=== PATIENT | female | born 1970 | race Caucasian/White ===

== ENCOUNTER 2023-11-03 01:52 | Day surgery (SDC) | payer BC, OTHER, SELFPAY ==
--- NOTE | 2023-10-27 14:42 | PC.NURSE ---
Report to the Outpatient Waiting Room, entrance under the green pavilion located off [facility], at time 6:00 on date 11/03/23. Planned Procedure Time: 7:45. Time changes happen often and if your time is changed the preop area will call you the afternoon before. - You and your visitor will be asked to self-screen and do not enter if you have any COVID symptoms. - A mask is optional within the hospital at this time. Patients may have clear liquids (water, carbonated beverages, clear teas, apple juice) until 3 hours prior to surgery (4:45) with a maximum of 20 ounces. - No food from midnight until time of surgery Take the following medications with a SIP of water the morning of surgery: ATENOLOL IF NEEDED DO NOT STOP ANY OF YOUR OTHER PRESCRIPTION MEDICATIONS PRIOR TO SURGERY ?EXCEPT THE FOLLOWING Medications to discontinue per physician: VITAMINS/SUPPLEMENTS Date to take last dose: 10/30/[address] DYSON REGARDING MELOXICAM Please no make-up, nail solomon islander, hairspray, perfume, deodorant, or body powder the day of surgery. No jewelry (including any body piercings) or valuables the day of surgery, leave them at home. Please take a shower or bath the night before, or the morning of, surgery with an antibacterial soap. Wear comfortable, loose fitting clothing. - Jewelry must be removed prior to entering the operating room. Rings and piercings that are not removed may be cut off. - The hospital will not accept responsibility for valuables. - Please leave all valuables, including medications, at home the day of surgery. If you are going home after surgery, a licensed local flatbed driver must drive you home. - NO public transportation without another adult if you receive anesthesia. - We recommend that an adult stay with you for 24 hours following discharge. - We also recommend that you do not drive, make important decision, drink alcoholic beverages, or take any drugs that were not prescribed by your health care provider for at least 24 hours after your discharge time. Follow any additional instructions given to you from your surgeon. If you or anyone in your household have experienced Covid symptoms in the past week, please notify your surgeon or the nurse liaison at the phone number below for possible testing. Telephone instructions given to ETIENNE SIFUENTES and asked if any additional questions and then verbalized understanding. Patient advised to call surgeon office or pre surgery nurse liaison [phone] if any additional questions.
[2023-11-03] VITALS (9 sets, daily range): BP systolic 100–143; BP diastolic 54–91; PULSE 67–91; RESP 12–18; TEMP 36.2–36.3; O2SAT 94–100
[2023-11-03 07:22] LABS: Glucose Point of Care 124 mg/dl (65-105)
--- NOTE | 2023-11-03 08:31 | P.HP_ITS ---
H&P: HPI History of Present Illness Date/Time: 11/03/23 08:31 Chief Complaint: Chronic sinusitis Review of Systems Review of Systems: All systems reviewed & are unremarkable except as noted in HPI and below [facility] Social History Social History Smoking status: Never smoker Alcohol intake: never Substance use: never Substance use type: does not use Living arrangements: alone Spiritual care concerns: No Meds Home Medications and Allergies Home Medications Medication Instructions Recorded Confirmed Type L.acidop,casei,lactis,rham-B.lact,loco 1 cap PO DAILY 10/27/23 11/03/23 History 625 mg (10 billion cell) capsule (Advanced Probiotic) atenolol 25 mg tablet 25 mg PO DAILY PRN Tachycardia 10/27/23 11/03/23 History cetirizine 10 mg tablet (Zyrtec) 10 mg PO DAILY 10/27/23 11/03/23 History donepezil 10 mg tablet 10 mg PO HS 10/27/23 11/03/23 History duloxetine 60 mg capsule,delayed 60 mg PO HS 10/27/23 11/03/23 History release leflunomide 20 mg tablet 20 mg PO DAILY 10/27/23 11/03/23 History meloxicam 7.5 mg tablet 7.5 mg PO BID 10/27/23 11/03/23 History metformin 500 mg tablet,extended 500 mg PO BID 10/27/23 11/03/23 History release 24 hr montelukast 10 mg tablet 10 mg PO HS 10/27/23 11/03/23 History semaglutide 2 mg/dose (8 mg/3 mL) 2 mg subcut WEEKLY 10/27/23 11/03/23 History subcutaneous pen injector (Ozempic) valacyclovir 500 mg tablet 500 mg PO HS 10/27/23 11/03/23 History Allergies Allergy/AdvReac Type Severity Reaction Status Date / Time latex Allergy Rash Verified 11/03/23 07:37 Sulfa (Sulfonamide Allergy Rash Verified 11/03/23 07:37 Antibiotics) Vital Signs Vital Signs - 24 hr 11/03/23 07:38 Temperature 36.3 C L Pulse Rate 91 Respiratory Rate 16 Blood Pressure 100/54 L Pulse Oximetry 98 Oxygen Delivery Room Air Exam Narrative: bilateral pansinusitis, deviatd septum, rest of exam wnl Assessment and Plan Assessment and plan (1) Chronic sinusitis: Code(s): J32.9 - Chronic sinusitis, unspecified Status: Acute Plan Lu has chronic sinusitis here for bilateral maxillary antrostomy,total ethmoidectomy, sphenoidotomy, turbinoplasyt, possible septoplasty, image guided surgery. r/b/a reviewed, all questions answered and she agrees to proceed. Refer to outpt H&P for further details.
--- NOTE | 2023-11-03 08:33 | P.OP_ITS ---
Procedure Note - Detailed Date of Procedure 11/03/23 Pre-op Diagnosis chronic sinusitis Post-op Diagnosis Same Procedure Performed Bilateral maxillary antrostomy, total ethmoidectomy, sphenoidotomy, inferior turbinoplasty, image guided surgery Surgeon Vickey Steiner MD Anesthesia General Indications Chronic sinusitis Findings Acute right maxillary sinusitis, bilateral nasopore placed, septoplasty not required Description of Procedure On the date of procedure the patient was met in the preoperative area and risk and benefits of the procedure reviewed with the patient as documented in the H&P and they elected to proceed with surgery. Patient was brought back to the operating room by the anesthesia team and underwent general endotracheal anesthesia. Once an adequate plane of anesthesia was obtained a timeout was performed to assure the patient identification the patient here to be performed were correct. They were.The patient was then prepped and draped in the normal fashion for endoscopic sinus surgery. The diffusion image guidance system was calibrated and used for the entire case. Afrin-soaked pledgets were placed in the nasal cavities bilaterally. The entire case was performed under endoscopic v isualization. Nasal endoscopy was performed at the beginning of the case. 1% lidocaine with 1:100,000 epinephrine was then injected into the root of the middle turbinate and lateral nasal wall bilaterally. Attention was then directed towards the right side. The middle turbinate was medialized and the osteomeatal complex was identified with a eddie probe. Using a 90 degree backbiter, the uncinate process was reflected anteriorly and removed using a combination of sharp and powered dissection. The maxillary antrostomy was then created and widened by identifying the natural ostia and opening the sinus with straight melissa-cut forceps, backbiter, and microdebrider. There was active sinus infection in the right side, all infected mucous was removed with suction. Continuing with the microdebrider, the anterior ethmoid bulla was opened. Careful dissection was carried out posteriorly, through the basal lamella and posterior ethmoid cells until the sphenoid rostrum was identified. A Vernon suction bluntly identified the sphenoid os and the opening was widened with microdebrider and mushroom punch to 5mm. Using an image guided curved suction as well as J-curette, the posterior most ethmoid cell was identified and the ethmoids were bluntly fractured and dissected from posterior to anterior along the base of the skull. The remaining bone fragments were removed with appropriate curved instruments and microdebrider.? Next, the left maxillary antrostomy, ethmoidectomy and sphenoidotomy were carried out in identical fashion. ? No clinical evidence of CSF throughout the case.? With all sinuses opened and clear, nasopore packing was placed in the ethmoid acvities bilaterally. Hemostasis was ensured. Lastly, the bilateral inferior turbinates were reduced submucosally using 2mm microdebrider and then outfractured with a sayer elevator. This significantly opened the airway. Le splints were then placed to secure the septum in the midline.? At this point, the procedure was concluded. Care the patient was transferred back to the anesthesia team and the patient was awoke in the operating room and transferred back to the PACU in stable condition. Vickey Steiner M.D. Estimated Blood Loss 10 Drains No Packing Yes (nasopore bilaterally) Pathology None sent Complications No immediate complications Condition Stable Disposition PACU
--- NOTE | 2023-11-03 08:33 | WPDHPUPDATE1 ---
History and Physical Update Update Date/Time: 11/03/23 08:33 History and Physical has been reviewed, including an updated exam of the patient. There are NO changes in the patient's condition. Risks, benefits, and alternatives have been discussed and questions answered. Patient agrees to proceed with procedure.
--- NOTE | 2023-11-03 08:34 | WPDANESEPPF ---
Anes - Initial Pre Proc Eval Procedure: Operation Date: 11/03/23 08:45 Proposed Procedures p Fusion Guided Bilateral Ethmoidectomy, Bilateral Sphenoidotomy, Bilateral Maxillary Antrostomy, Bilateral Turbinate Reduction - Vickey Steiner MD s Possible Septoplasty - Vickey Steiner MD Date/Time: 11/03/23 08:34 Surgeon: Vickey Steiner MD Pre Op Diagnosis: chronic sinusitis Patient Data Age: 53 Gender: F Height: 1.63 m Weight: 80.15 kg Last Vital Signs Temp 36.3 C L 11/03/23 07:38 Pulse 91 11/03/23 07:38 Resp 16 11/03/23 07:38 BP 100/54 L 11/03/23 07:38 Pulse Ox 98 11/03/23 07:38 O2 Del Method Room Air 11/03/23 07:38 Allergies Allergy/AdvReac Type Severity Reaction Status Date / Time latex Allergy Rash Verified 11/03/23 07:37 Sulfa (Sulfonamide Allergy Rash Verified 11/03/23 07:37 Antibiotics) Home Medications Medication Instructions Recorded Confirmed Type L.acidop,casei,lactis,rham-B.lact,loco 1 cap PO DAILY 10/27/23 11/03/23 History 625 mg (10 billion cell) capsule (Advanced Probiotic) atenolol 25 mg tablet 25 mg PO DAILY PRN Tachycardia 10/27/23 11/03/23 History cetirizine 10 mg tablet (Zyrtec) 10 mg PO DAILY 10/27/23 11/03/23 History donepezil 10 mg tablet 10 mg PO HS 10/27/23 11/03/23 History duloxetine 60 mg capsule,delayed 60 mg PO HS 10/27/23 11/03/23 History release leflunomide 20 mg tablet 20 mg PO DAILY 10/27/23 11/03/23 History meloxicam 7.5 mg tablet 7.5 mg PO BID 10/27/23 11/03/23 History metformin 500 mg tablet,extended 500 mg PO BID 10/27/23 11/03/23 History release 24 hr montelukast 10 mg tablet 10 mg PO HS 10/27/23 11/03/23 History semaglutide 2 mg/dose (8 mg/3 mL) 2 mg subcut WEEKLY 10/27/23 11/03/23 History subcutaneous pen injector (Ozempic) valacyclovir 500 mg tablet 500 mg PO HS 10/27/23 11/03/23 History Laboratory Tests 11/03/23 07:19 POC Capillary Glucose 124 H mg/dl (65-105) Patient hx anesthesia problems: post op nausea/vomiting Family hx anesthesia problems: post op nausea/vomiting Results Review: All pre-operative results and documents have been reviewed as part of the pre-operative evaluation. [facility] Social History Social History Smoking status: Never smoker Alcohol intake: never Substance use: never Substance use type: does not use Living arrangements: alone Spiritual care concerns: No Anes - Eval Final PreProcedure Day of Procedure 11/03/23 08:34 Patient weight: obese Heart: regular rate and rhythm Lungs: clear to auscultation Airway: Mallampati scale class II Neurological: alert and oriented Last oral intake: >/= 8 hours ASA classification: III Emergent: no Anesthetic plan: proceed Anesthesia type and monitoring: general ETT and standard monitoring Results Review: All pre-operative results and documents have been reviewed as part of the pre-operative evaluation. Informed Consent: The patient's anesthetic plan and its attendant risks and benefits were discussed with the patient/family/POA. Questions were solicited and answers provided to the satisfaction of the patient/family/POA.
[2023-11-03] MEDS: LACTATED RINGERS 1,000 ML 30 ML IV CONT (08:35)
[2023-11-03] MEDS: ACETAMINOPHEN 500 MG TABLET 1000 MG PO (08:39)
[2023-11-03] MEDS: SCOPOLAMINE 1 MG PATCH 1 PATCH TRANSDERM (08:40)
[2023-11-03] MEDS: OXYMETAZOLINE HCL 0.05% NAS 15 ML BTL (*BKC) 1 SPRAY NASAL (08:40)
[2023-11-03] MEDS: ceFAZolin 2 GM/D5W 50 ML 2 GM/50 ML BAG IVPB (08:56)
[2023-11-03] MEDS: MUPIROCIN 2% OINT 22 GM TUBE 1 APPLIC EACH NARE (09:00)
[2023-11-03] MEDS: LIDO 1%/EPINEPHRINE 1:100,000 50 ML VIAL INFILTRATE (09:16)
[2023-11-03 10:09] LABS: Glucose Point of Care 92 mg/dl (65-105)
[2023-11-03] MEDS: fentaNYL CITRATE INJ (*CRX) 100 MCG/2 ML VIAL 25 MCG IV PUSH ×2 (10:12→10:16)
== END 2023-11-03 12:19 | disposition home or self-care (01) ==
PROVIDERS: PCP Nurse Practitioner Family; Visit Provider Otolaryngology
PROC: (CPT 31256; principal; 2023-11-03 08:45)
DX: J01.00 Acute maxillary sinusitis, unspecified (principal); E66.9 Obesity, unspecified; Z68.30 Body mass index [BMI] 30.0-30.9, adult; Z79.84 Long term (current) use of oral hypoglycemic drugs; Z79.85 Long-term (current) use of injectable non-insulin antidiabetic drugs
CPT/HCPCS: 31256; 31257; 30140; 61782; 82948; A9270; J0690; J1100; J2405; J2704; J3010; J7030; J7050; J7120